=== PATIENT | female | born 1995 | race Caucasian/White ===

== ENCOUNTER 2017-09-12 21:36 | Emergency (ER) | payer MEDICAID ==
[2017-09-13] MEDS: IBUPROFEN 600 MG TAB PO (05:00)
[2017-09-13] MEDS: ACETAMINOPHEN 325 MG TAB PO (05:00)
[2017-09-13] MEDS: ALBUTEROL 0.083% (NEB) 2.5 MG/3 ML AMP HHN (05:11)
[2017-09-13] MEDS: IPRATROPIUM (NEB) 0.5 MG/2.5 ML AMP HHN (05:11)
== END 2017-09-13 06:52 | disposition home or self-care (01) ==
LOC: FTE 21:36
DX: J10.1 Influenza due to other identified influenza virus with other respiratory manifestations (principal)
CPT/HCPCS: 87400; 94664; 99284-25

== ENCOUNTER 2018-12-17 20:26 | Inpatient (IN) | payer MEDICAID ==
[2018-12-17] MEDS ORDERED: LACTATED RINGER'S 1,000 ML IV (22:08)
[2018-12-17] MEDS ORDERED: METHYLERGONOVINE 0.2 MG INJ IM (22:30)
[2018-12-17] MEDS ORDERED: CARBOPROST 250 MCG INJ IM (22:30)
[2018-12-17] MEDS ORDERED: OXYTOCIN 30 UNITS/LR 500 ML IV ×3 (22:30)
[2018-12-17] MEDS ORDERED: LIDOCAINE 1% (MPF) 30 ML INJ INJ (22:30)
[2018-12-17] MEDS ORDERED: BUTORPHANOL 2 MG INJ IV (22:30)
[2018-12-17] MEDS ORDERED: MISOPROSTOL 200 MCG TAB PR (22:30)
[2018-12-17] MEDS ORDERED: BUTORPHANOL 1 MG INJ IV (22:30)
[2018-12-17 22:51] LABS: ADD MAN DIFF? NO
[2018-12-17] MEDS: LACTATED RINGER'S 1,000 ML IV (22:52)
[2018-12-17 23:06] LABS: BASOPHILS % 0.4 % (0.0-2.0); EOSINOPHILS # 0.1 10^3/ul (0.0-0.5); EOSINOPHILS % 0.6 % (0.0-7.0); HEMATOCRIT 37.4 % (37.0-47.0); HEMOGLOBIN 12.4 g/dl (12.0-16.0); LYMPHOCYTES # 2.5 10^3/ul (0.8-2.9); LYMPHOCYTES % 30.4 % (15.0-51.0); MEAN CORPUSCULAR HEMOGLOBIN 28.6 pg (29.0-33.0); MEAN CORPUSCULAR HGB CONC 33.2 g/dl (32.0-37.0); MEAN CORPUSCULAR VOLUME 86.4 fl (82.0-101.0); MEAN PLATELET VOLUME 11.8 fl (7.4-10.4); MONOCYTE # 0.6 10^3/ul (0.3-0.9); MONOCYTES % 7.8 % (0.0-11.0); NEUTROPHILS % 60.2 % (39.0-77.0); PLATELET COUNT 247 10^3/UL (140-415); RED BLOOD COUNT 4.33 10^6/ul (4.20-5.40); RED CELL DISTRIBUTION WIDTH 15.9 % (11.5-14.5)
[2018-12-17 23:06] LABS: WHITE BLOOD COUNT 8.3 10^3/ul (4.8-10.8)
[2018-12-17] MEDS: AMPICILLIN 2 GM/NS (PMX) 100 ML IV (23:18)
[2018-12-17 23:24] LABS: INR 0.85; PROTIME 11.7 Sec (11.9-14.9); PT RATIO 0.9
[2018-12-17 23:25] LABS: PARTIAL THROMBOPLASTIN TIME 26.3 Sec (23.0-35.0)
[2018-12-18] MEDS: AMPICILLIN 1 GM/NS (PMX) 50 ML IV ×2 (03:05→06:30)
[2018-12-18] MEDS: LACTATED RINGER'S 1,000 ML IV ×2 (06:08→14:08)
[2018-12-18] MEDS: IBUPROFEN 600 MG TAB PO ×2 (07:30→17:59)
[2018-12-18] MEDS: SENNA/DOCUSATE NA (8.6MG/50MG) TAB PO (09:00)
[2018-12-18] MEDS ORDERED: ZOLPIDEM 5 MG TAB PO (09:00)
[2018-12-18] MEDS ORDERED: BENZOCAINE 20% 56 ML SPRAY TOP (09:00)
[2018-12-18] MEDS ORDERED: CARBOPROST 250 MCG INJ IM (09:00)
[2018-12-18] MEDS ORDERED: OXYTOCIN 30 UNITS/LR 500 ML IV (09:00)
[2018-12-18] MEDS ORDERED: MISOPROSTOL 200 MCG TAB PR (09:00)
[2018-12-18] MEDS ORDERED: WITCH HAZEL/GLYCERIN PAD PR (09:00)
[2018-12-18] MEDS ORDERED: OXYCODONE/ASPIRIN (4.88/325) TAB PO ×2 (09:00)
[2018-12-18] MEDS ORDERED: METHYLERGONOVINE 0.2 MG INJ IM (09:00)
[2018-12-18 14:56] LABS: RAPID PLASMA REAGIN NONREACTIVE (NR)
[2018-12-19] MEDS: IBUPROFEN 600 MG TAB PO ×5 (00:32→23:28)
[2018-12-19] MEDS: SENNA/DOCUSATE NA (8.6MG/50MG) TAB PO ×3 (00:32→20:26)
[2018-12-19 08:46] LABS: ADD MAN DIFF? NO
[2018-12-19 08:53] LABS: WHITE BLOOD COUNT 10.8 10^3/ul (4.8-10.8)
[2018-12-19 08:53] LABS: BASOPHILS % 0.3 % (0.0-2.0); EOSINOPHILS % 0.4 % (0.0-7.0); HEMATOCRIT 38.4 % (37.0-47.0); HEMOGLOBIN 12.5 g/dl (12.0-16.0); LYMPHOCYTES # 3.1 10^3/ul (0.8-2.9); LYMPHOCYTES % 28.7 % (15.0-51.0); MEAN CORPUSCULAR HEMOGLOBIN 28.6 pg (29.0-33.0); MEAN CORPUSCULAR HGB CONC 32.6 g/dl (32.0-37.0); MEAN CORPUSCULAR VOLUME 87.9 fl (82.0-101.0); MEAN PLATELET VOLUME 10.9 fl (7.4-10.4); MONOCYTE # 0.6 10^3/ul (0.3-0.9); MONOCYTES % 5.7 % (0.0-11.0); NEUTROPHIL # 6.9 10^3/ul (1.6-7.5); NEUTROPHILS % 64.1 % (39.0-77.0); PLATELET COUNT 242 10^3/UL (140-415); RED BLOOD COUNT 4.37 10^6/ul (4.20-5.40); RED CELL DISTRIBUTION WIDTH 16.4 % (11.5-14.5)
[2018-12-19] MEDS: LANOLIN HPA 1 PKT TOP (13:03)
[2018-12-20] MEDS: IBUPROFEN 600 MG TAB PO ×2 (05:31→11:54)
[2018-12-20] MEDS: LANOLIN HPA 1 PKT TOP ×2 (08:13→08:14)
[2018-12-20] MEDS: SENNA/DOCUSATE NA (8.6MG/50MG) TAB PO (09:59)
[2018-12-20] MEDS: DIPHTH/TET/ACEL PERTUSS (ADULT) 0.5 ML VIAL IM* (10:00)
== END 2018-12-20 15:10 | disposition home or self-care (01) | DRG 807 ==
LOC: OBT 20:26 → L-D 20:27 → PP1 12-18 15:17 → OBT 22:03 → L-D 22:03
PROVIDERS: Obstetrics & Gynecology
PROC: 10E0XZZ Delivery of Products of Conception, External Approach (ICD-10-PCS; principal; 2018-12-18)
DX: O80 Encounter for full-term uncomplicated delivery (principal); Z37.0 Single live birth; Z3A.39 39 weeks gestation of pregnancy
CPT/HCPCS: 85025; 85610; 85730; 86592; 86850; 86900; 86901; 90715